=== PATIENT | female | born 1960 | race Caucasian/White ===

== ENCOUNTER → 2018-10-20 10:01 | Outpatient (CLI) | payer OTHER, SELFPAY ==
[2018-10-20 11:23] LABS: EXAGEN MAILED SPECIMEN
[2018-10-20 12:29] LABS: Absolute Lymphocyte Count 1.11 X10^3/ul (0.83-4.51); Absolute Neutrophil Count 1.8 X10^3/uL (2.0-7.7); Basophil# 0.02 X10^3/uL; Basophil% 0.6 % (0-1); Eosinophil# 0.05 X10^3/uL; Eosinophils% 1.5 % (0-5); Hematocrit 45.4 % (37-47); Hemoglobin 14.6 g/dl (12.0-15.0); Lymphocyte # 1.11 X10^3/ul (4.0); Mean Corp Hgb Conc 32.2 g/gl (32-36); Mean Corpuscular Hgb 28.8 pg (27.0-32.0); Mean Corpuscular Volume 89.5 fL (81-99); Monocyte# 0.34 X10^3/uL; Monocyte% 10.1 % (0-10); Neutrophil # 1.83 X10^3/uL (2.7-7.7); Neutrophil % 54.5 % (47-70); Platelet Count 274 K/mm3 (150-450); RBC Distribution Width CV 13.5 % (11.6-14.6); RBC Distribution Width SD 43.7 fl (35.1-43.9); Red Blood Count 5.07 M/mm3 (4.2-5.4); White Blood Count 3.4 K/mm3 (4.4-11.0)
[2018-10-20 12:37] LABS: POSITIVE COUNT NO; POSITIVE DIFFERENTIAL NO; POSITIVE MORPHOLOGY NO
[2018-10-20 12:40] LABS: Color, Urine Yellow (Yellow); Glucose, Dipstick Normal (Normal); Ketone-Dipstick 5 mg/dl (Negative); Leukocyte Esterase-Dipstick 500 /ul (Negative); Nitrite-Dipstick Negative (Negative); Occult Blood-Urine Negative /ul (Negative); Protein-Dipstick Negative (Negative); Specific Gravity, Urine 1.025 (1.002-1.030); Urine Bilirubin Dipstick Negative (Negative); Urine Clarity Sl. Cloudy (Clear); Urine Urobilinogen Normal (Normal)
[2018-10-20 12:49] LABS: Protein, Urine (Random) 25.1 mg/dL (<11.9); Protein:Creat Ratio 110 mg/g CRE (0-200)
[2018-10-20 12:50] LABS: ALB/GLOB Ratio 1.1 RATIO (0.9-2.4); AST(SGOT) 39 U/L (15-37); Alanine Aminotransfer ALT/SGPT 49 U/L (13-56); Alkaline Phosphatase 79 U/L (45-117); Anion Gap 9 (5-15); BUN 11 mg/dL (7-18); BUN/Creat Ratio 14.9 RATIO (10-20); CRP 8.07 mg/L (0.0-3.0); Calcium,Total 8.6 mg/dL (8.5-10.1); Chloride 104 mmol/L (98-107); Creatinine, Serum 0.74 mg/dL (0.55-1.02); EST Glomerular Filtration Rate 86 mL/min (>60); Est Glom Filt Rate - Afr Amer 105 mL/min (>60); Globulin 3.7 g/dL (2.2-4.2); Glucose 84 mg/dL (74-106); Potassium 4.1 mmol/L (3.5-5.1); Protein, Total 7.7 g/dL (6.4-8.2); Sodium Level 141 mmol/L (136-145)
[2018-10-20 17:27] LABS: Erythrocyte Sedimentation Rate 23 mm/hr (0-30)
[2018-10-22 10:02] LABS: HEPATITIS B SURFACE AG Negative (Negative); Hep B Surface Antibodies Reactive (.); Hep C Antibodies 0.2 s/co ratio (0.0-0.9)
== END ==
LOC: MTLAB 10:09
PROVIDERS: Family Provider Family Medicine; PCP Family Medicine; Referring Provider Internal Medicine Rheumatology; Visit Provider Internal Medicine Rheumatology
DX: M06.4 Inflammatory polyarthropathy (principal); R76.8 Other specified abnormal immunological findings in serum; M79.7 Fibromyalgia; G25.81 Restless legs syndrome; I49.9 Cardiac arrhythmia, unspecified
CPT/HCPCS: 36415; 80053; 81002; 82570; 84156; 85025; 85652; 86140; 86706; 86803; 87340

== ENCOUNTER 2019-05-07 10:10 | Day surgery (SDC) | payer OTHER, SELFPAY ==
[2019-05-07] VITALS (7 sets, daily range): BP systolic 122–154; BP diastolic 64–93; PULSE 71–75; RESP 14–16; TEMP 36.1–36.4; O2SAT 97–100; BMI 33.5
--- NOTE | 2019-05-07 11:20 | RAD_ITS ---
STUDY: X-RAY - PELVIS AND LEFT HIP REASON FOR EXAM: Female, 59 years old. Left hip injection. TECHNIQUE: AP views of the pelvis and hip. COMPARISON: None. FINDINGS: Intraoperative imaging provided for left hip injection. Contrast is seen within the left. RAD/Fluoro Guided Needle Placement IMPRESSION: Imaging provided for left hip injection. Electronically Signed: Tuan Fountain, at 15:58 EDT , Service support ,
[2019-05-07] MEDS: MethylPREDNISolone Acetate 80 MG/ML Vial (11:43)
[2019-05-07] MEDS: Bupivacaine 0.25% 30 ML Vial (11:44)
--- NOTE | 2019-05-07 13:04 | OP.PCM_ITS ---
Problem List (1) Primary osteoarthritis of left hip Status: Chronic Report of Operation Date of Procedure: 05/07/19 Description of Surgical Findings:: PREOPERATIVE DIAGNOSIS: Osteoarthritis of left hip POSTOPERATIVE DIAGNOSIS: Osteoarthritis of left hip. PROCEDURE PERFORMED: Left hip intraarticular steroid injection under fluoroscopic guidance. ANESTHESIA: MAC. BLOOD LOSS: Minimal. COMPLICATIONS: None. DESCRIPTION OF PROCEDURE: History and physical of today was reviewed. Risks and benefits of the procedure were explained. The patient understood and agreed to proceed. Informed consent was obtained. IV inserted per routine protocol. The patient was taken to the operating room and placed in the supine position. The left hip area were prepped and draped in a sterile fashion using iodine x3. Under fluoroscopy guidance on an AP view, the left hip joint was visualized visualized. The skin and subcutaneous tissue was anesthetized with approximately 5 mL of 1% lidocaine using a 25-gauge regular needle at approximately 3 cm cephalad to the left greater trochanter, under direct visualization with fluoroscopy on AP view using the lateral approach using a 22- gauge 5 inch spinal needle the needle was advanced via the skin the tip of the needle was maneuver and directed towards the superiormost aspect of the hip joint once the tip of the needle was at the vicinity of the joint after negative aspiration for blood or CSF a total of 1 cc of contrast was injected to confirm correct placement of the needle as well as halo spread around the hip joint a fter repeated confirmation of AP as well as oblique view a total of 10 cc of preservative-free 0.25% Marcaine with 80 mg of Depo-Medrol was injected into the hip joint, . After negative aspiration for blood and positive aspiration of synovial fluid, a The needles were then removed intact. The patient experienced no sign or symptoms of intravascular injection. The patient experienced no paresthesia. The procedure was completed without any apparent difficulty or any complications. The patient appeared to tolerate it well. Assessment and plan: This is a 59-year-old female with osteoarthritis of the left hip status post left hip intra-articular steroid injection under fluoroscopic guidance patient will continue current medications patient found approximately 2 weeks for re evaluation.
== END 2019-05-07 12:40 | disposition home or self-care (01) ==
LOC: SDC 10:15 → AC 10:52
PROVIDERS: Family Provider Family Medicine; PCP Family Medicine; Referring Provider Anesthesiology Pain Medicine; Visit Provider Anesthesiology Pain Medicine
PROC: 3E0U3GC Introduction of Other Therapeutic Substance into Joints, Percutaneous Approach (ICD-10-PCS; CPT 20610; principal; 2019-05-07 11:15)
DX: M16.12 Unilateral primary osteoarthritis, left hip (principal); J45.909 Unspecified asthma, uncomplicated; F41.9 Anxiety disorder, unspecified; F32.9 Major depressive disorder, single episode, unspecified; K21.9 Gastro-esophageal reflux disease without esophagitis; G25.81 Restless legs syndrome; Z86.73 Personal history of transient ischemic attack (TIA), and cerebral infarction without residual deficits; Z79.891 Long term (current) use of opiate analgesic; Z79.899 Other long term (current) drug therapy
CPT/HCPCS: 20610; 76000; 77002; J7120

== ENCOUNTER → 2022-09-10 | Outpatient (CLI) | payer OTHER, SELFPAY ==
--- NOTE | 2022-09-10 11:20 | CT_ITS ---
STUDY: CT ABDOMEN AND PELVIS WITHOUT CONTRAST REASON FOR EXAM: Female, 62 years old. Abdominal pain possible kidney stones. Right flank pain. RADIATION DOSAGE (If Supplied By Facility): CTDIvol = ( 21 ) mGy, DLP = ( 944.22 ) mGycm TECHNIQUE: Transaxial images were obtained from the dome of the diaphragm to the symphysis pubis without oral contrast, and without intravenous contrast. Sagittal and coronal images were reconstructed. Individualized dose optimization techniques were used for this CT. COMPARISON: None. FINDINGS: Minimal linear scarring at the left lung base. The visualized portions of the heart are within normal limits. Normal liver. Questionable tiny layering gallstones. Normal spleen. Normal pancreas. There is a small, circumscribed, smooth, low attenuation left adrenal mass, consistent with an adrenal adenoma. This measures 1.7 cm Normal right adrenal gland. Normal right kidney. Normal left kidney. There is a retroaortic left renal vein. There is a small hiatal hernia. Normal small intestine. There are scattered colonic diverticula consistent with diverticulosis. There is non-visualization of the appendix. There is scattered atherosclerotic calcification of the abdominal aorta, without a demonstrated aneurysm. Normal inferior vena cava. Normal retroperitoneum. Normal urinary bladder. There is absence of the uterus consistent with a prior hysterectomy. There is a small umbilical hernia containing fat. Small right inguinal hernia containing fat. There are degenerative changes of the visualized lumbar spine. The patient is status post left total hip replacement. CT/Abdomen/Pelvis without Cont IMPRESSION: Questionable tiny layering gallstones. Small left adrenal adenoma. Scattered sigmoid diverticula. Electronically Signed: Tuan Fountain MD at 12:20 EST ,
== END | disposition home or self-care (01) ==
LOC: CT 11:19
PROVIDERS: PCP Family Medicine; Visit Provider Surgery
DX: R10.9 Unspecified abdominal pain (principal)
CPT/HCPCS: 74176

== ENCOUNTER 2022-09-13 06:01 | Day surgery (SDC) | payer OTHER, SELFPAY ==
[2022-09-13] VITALS (8 sets, daily range): BP systolic 128–152; BP diastolic 52–89; PULSE 60–100; RESP 16–18; TEMP 36.7–37.2; O2SAT 90–100; BMI 35.4
--- NOTE | 2022-09-13 06:28 | EKG12_ITS ---
Test Reason : PRE-OP Blood Pressure : / mmHG Vent. Rate : 078 BPM Atrial Rate : 078 BPM P-R Int : 164 ms QRS Dur : 086 ms QT Int : 370 ms P-R-T Axes : 038 -05 036 degrees QTc Int : 421 ms Normal sinus rhythm Normal ECG Confirmed by ROBBIE PRABHAKAR, YANETH ([id number]), production editor SPENCER MCCLOUD ([id number]) on 09/16/2022 11:40:23 AM Referred By: Colt Hanna Confirmed By:YANETH AVALOS MD
--- NOTE | 2022-09-13 06:30 | RAD_ITS ---
STUDY: INTRAOPERATIVE CHOLANGIOGRAM. REASON FOR EXAM: Female, 62 years old. Laparoscopic cholecystectomy. FLUOROSCOPY TIME (if supplied): ( 11.8 seconds ) minutes/seconds. A cine loop of 70 images was submitted. TECHNIQUE: An intraoperative cholangiogram was performed by the surgeon. Imaging was provided. COMPARISON: None. FINDINGS: The visualized intrahepatic biliary ducts are unremarkable. The common bile duct as well as the pancreatic duct are unremarkable as well. Free flow of contrast is seen into the duodenum. RAD/Cholangiogram/ O R,Initial IMPRESSION: Unremarkable intraoperative cholangiogram. Electronically Signed: Tuan Fountain MD at 10:08 [facility] ,
[2022-09-13 06:37] LABS: Hematocrit 42.1 % (37-47); Hemoglobin 13.9 g/dL (12.0-15.0); Mean Corpuscular Hgb 28.9 pg (27.0-32.0); Mean Corpuscular Volume 87.5 fL (81-99); Mean Platelet Vol. 9.8 fl (6.2-12.0); Platelet Count 354 K/mm3 (150-450); RBC Distribution Width SD 41.6 fl (35.1-43.9); Red Blood Count 4.81 M/mm3 (4.2-5.4); White Blood Count 8.4 K/mm3 (4.4-11.0)
[2022-09-13] MEDS: Lactated Ringers 1,000 ML 15 ML IV ×2 (06:43→09:01)
[2022-09-13 06:46] LABS: Partial Thromboplast Time 27.8 Seconds (24.1-36.2); Prothrombin Time (Protime)PT. 12.6 SECONDS (11.7-14.9)
[2022-09-13 07:05] LABS: AST(SGOT) 20 U/L (15-37); Alanine Aminotransfer ALT/SGPT 31 U/L (13-56); Albumin, Serum 3.6 g/dL (3.2-5.0); Alkaline Phosphatase 92 U/L (45-117); Bilirubin, Direct 0.15 mg/dL (0.00-0.30); Globulin 3.7 g/dL (2.2-4.2); Protein, Total 7.3 g/dL (6.4-8.2)
--- NOTE | 2022-09-13 07:14 | HP.PCM_ITS ---
History and Physical Date of Admission: 09/13/22 Intake Vital Signs ? 09/09/2312:16 Height 5 ft 4 in Weight: 210 lb 2 oz BMI 36.1 BP 120/82 H Blood Pressure Location Rt brachial Position Sitting Respiration 18 Pulse 84 Pulse Source Monitor Temp 97.4 F L Temp Source Temporal Pulse Oximetry (%) 96 Oxygen Delivery Method room air Intake Visit Reasons:?GALLBLADDER Chief Complaint: Gallstones Rail Track Layer Required: No Is patient in pain?: Yes Allergies tramadol Allergy (Intermediate, Verified 09/09/22 13:18) mood changes Medications ropinirole 2 mg tablet 2 mg PO DAILY 05/01/19 [History Confirmed 09/09/22] duloxetine 60 mg capsule,delayed release 90 mg PO DAILY 09/09/22 [History Confirmed 09/09/22] fluoxetine 20 mg capsule 20 mg PO DAILY 09/09/22 [History Confirmed 09/09/22] PFSH Medical History?(Updated 09/09/22 @ 14:[address] Félix Wilkerson MD) Abdominal pain Gallstones Primary osteoarthritis of left hip RUQ pain Surgical History?(Updated 09/09/22 @ 13:12 by Taylor Torres) History of hysterectomy History of lymph node biopsy History of vocal cord polypectomy Family History?(Updated 09/09/22 @ 13:15 by Taylor Torres) Mother Breast cancerSister Breast cancer Seizures Thyroid disorderSister Breast cancer Seizures Thyroid disorderAunt Breast cancer DiabetesUncle DiabetesFather Heart diseaseBrother Skin cancer Seizures CVA (cerebral vascular accident)Brother Seizures Social History?(Updated 09/09/22 @ 13:16 by Taylor Torres) Smoking Status:? Never smoker alcohol intake:? never substance use type:? does not use HPI HPI HPI: Patient is a 62-year-old female here for abdominal pain.? She says most of the pain is actually in her right back.? She does says she has some nausea but no vomiting.? She denies fevers or chills.? She says has been going on for a few months.? She said eating does make it worse. ROS General General: Yes weight change and fatigue; No appetite, colon cancer, breast cancer or weakness HEENT HEENT: Yes difficulty swallowing; No eye injury, eye surgery, swollen glands or hoarseness Endo Endocrine: No thyroid disease, diabetes mellitus, thyroid cancer, Hair loss, heat intolerance or cold intolerance Skin Skin: Yes rash; No changing moles Breast Breast: No left breast lump, right breast lump, nipple discharge, breast pain, abnormal mammogram, abnormal US or breast enlargement Musc Musculoskeletal: Yes back problems and arthritis; No rheumatoid arthritis, gout or joint pain Cardio Cardiovascular: Yes high blood pressure; No murmur, pacemaker, heart disease, atrial fibrillation, heart attack, heart stent, palpitations, shortness of breat with exertion or chest pain Psych Psychiatric: Yes depression and anxiety; No hearing voices Resp Respiratory: No shortness of breath, Yes sleep apnea, No cough, No COPD, No asthma, No emphysema and No wheezing Gastro Gastrointestinal: Yes abdominal pain, Yes nausea or vomiting, No diarrhea, No constipation, No blood in stool, Yes acid reflux, No hemorrhoids, No ulcers, Yes gallbladder problem and No black,tarry stools Art Hematologic: No blood thinners, No blood disorders, No bleeding, No anemia and No blood clots Neuro Neurologic: No system reviewed and no additional complaints, except as documented, No as per HPI, No abnormal gait, No abnormal hearing, No abnormal movements, No abnormal speech, No behavioral changes, No burning sensations, No confusion, No convulsions, No disequilibrium, No dizziness, No localized weakness, No frequent falls, No headache(s), No lack of coordination, No loss of vision, No memory loss, Yes numbness, No other visual disturbances, No radicular pain, No restless legs, No sensory deficit, No syncope, Yes tingling, No tremor(s), No weakness and No other Exam Const General: cooperative Orientation: alert and oriented x3 HENVA Head: normal to inspection Neck Neck: normal visual inspection and full ROM Chest Chest palpation & inspection: normal inspection of the chest Resp Effort & Inspection: normal respiratory effort Auscultation: clear to auscultation bilaterally Cardio Rate: regular rate Rhythm: regular rhythm GI Inspection: non-distended Palpation: soft and nontender General: CVA tenderness on the right Skin General: no rashes or lesions noted Neuro General: patient alert and patient oriented x3 Extrem General: full ROM Psych Appearance: grossly normal Mental Status: mental status grossly normal Assessment and Plan Assessment and Plan (1) Cholelithiasis: ?Status:?Acute ?Qualifiers: ?Cholelithiasis location:?gallbladder??Cholecystitis presence:?without cholecystitis??Biliary obstruction:?without biliary obstruction? Qualified Code(s):?K80.20 - Calculus of gallbladder without cholecystitis without obstruction ?Plan: Patient was sent here from an outside hospital due to cholelithiasis.? Upon examining her the patient does not have any right upper quadrant pain and most of her pain is in her right CVA area.? Patient does not note any blood in her urine and has never had kidney stones.? Ultrasound revealed that she does have gallstones but no thickening.? Patient says that she is constantly in pain is been in pain and months but has been getting worse. I reviewed the patient's ultrasound with her and I do believe that she would need laparoscopic cholecystectomy as long as the CT scan does not show kidney stones.? It is odd that her pain is more in the right CVA than the right upper quadrant.? After CT is able to be done to confirm that there are no kidney stones as the cause of her pain then I would recommend laparoscopic cholecystectomy. I discussed the procedure in detail with the patient.? I discussed the risks, benefits, and alternatives of the procedure.? I discussed the risks including but not limited to bleeding, infection, injury to surrounding organs such as the liver, bile duct, bowels.? I did discuss the possibility of having to convert to an open procedure as well as the possibility that if any injuries occurred this may necessitate further surgery at a tertiary care center. Félix Wilkerson MD Pager: [facility] [address] [place] [address], [address] [place] [address] Office: I obtained CT scan and it did not show any kidney stones leaving the gallbladder is the most likely cause of her pain. I discussed cholecystectomy with her and she would like to proceed. I discussed the procedure in detail with the patient. I discussed the risks, benefits, and alternatives of the procedure. I discussed the risks including but not limited to bleeding, infection, injury to surrounding organs such as the liver, bile duct, bowels. I did discuss the possibility of having to convert to an open procedure as well as the possibility that if any injuries occurred this may necessitate further surgery at a tertiary care center. I have examined the patient and the H&P has been reviewed. There are no clinical changes since date of exam. Félix Wilkerson MD Pager: [facility] [address] [place] [address], [address] [place] [address] Office:
--- NOTE | 2022-09-13 07:30 | GALL_PTH ---
PATIENT: BOOM PATE LOC: [facility] [place] U#:[id number] AGE/SX: 62/F ROOM: RE09/13/[address]: Dr. Félix Wilkerson MD : 1960 BED: DIS: 09/13/2022 SPEC #: [id number] RECD: 09/13/22 10:56 STATUS: GEORGE REKeyla #: [id number] SHELBY: 09/13/22 07:[address]: Félix Wilkerson DEPT: SURGICAL PATHOLOGY RECD BY: Jayleen Cano ENTERED: 09/13/22 12:01 SP TYPE: CELIO OLIVARES DR: Dr. Colt Hanna MD Tissues: Gallbladder, NOS Procedures: Surgery Specimen Level III HEADER OPERATION: Laparoscopic cholecystectomy with IOC PRE-OP DIAGNOSIS: Cholelithiasis TISSUE SUBMITTED: Gallbladder MICROSCOPIC DIAGNOSIS Gallbladder, cholecystectomy: Chronic cholecystitis and cholelithiasis. SJ:lisa 09/14/2022 MICROSCOPIC DESCRIPTION Slides are reviewed. GROSS DESCRIPTION Received is one container labeled with the patient's name and designated gallbladder. The specimen consists of a gallbladder measuring 11 cm in length and 3.5 cm in diameter. The external surface is pink-reyes, smooth and glistening for the most part. Focally it is granular, hemorrhagic and contains cautery artifact. The gallbladder contains green-yellow mucoid bile and two multifaceted, yellowish-orange stones measuring 1.5 and 2 cm in greatest dimension. The mucosa is bile-stained and without any mass lesions. The gallbladder wall measures up to 0.2 cm in thickness. Awning Spreader sections from the gallbladder and the cystic duct are submitted in one cassette. / SJ:rg 09/13/2022 TC:3 CPT: 08383
[2022-09-13] MEDS: Cefotetan 2 GM in 0.9% NS 100 ML IV (07:41)
[2022-09-13] MEDS: Bupiv/Epi 0.5% Mpf 30 ML Vial (07:48)
--- NOTE | 2022-09-13 08:55 | PCM.OPRPT ---
Report of Operation Date of Procedure: 09/13/22 Pre-Operative Diagnosis: Cholelithiasis Post-Operative Diagnosis: Same Surgery/Procedure Performed:: Laparoscopic cholecystectomy with cholangiogram Specimen's removed: Gallbladder Description of Procedure: After obtaining informed consent patient was brought back to the operating room. General anesthesia was induced. The abdomen was prepped and draped in usual sterile fashion. A small midline incision was made superior to the umbilicus and deepened to the level of fascia. The fascia was elevated and incised. Next the peritoneum was elevated and incised in the same fashion. Finger sweep was performed and the Cheng trocar was placed into the abdomen. The balloon was inflated. The abdomen was inflated to 15 mmHg. Next a camera was introduced into the abdomen and the abdomen was inspected. Next under direct visualization three 5-mm ports were placed one subxiphoid and 2 subcostal. Next the gallbladder was elevated and retracted toward the right shoulder. The peritoneum was stripped from the gallbladder. The infundibulum was located and retracted laterally. Next the triangle of Calot was dissected and the cystic duct and cystic artery were identified. Cholangiograms were performed. The Laird clamp was used to clamp across the infundibulum and the catheter needle was inserted into the gallbladder. Under fluoroscopy contrast was instilled into the gallbladder and the common duct, cystic duct as well as proximal hepatic ducts were identified. There was good filling of the duodenum. There were no filling defects noted in the common bile duct. The clamp was removed as well as the needle and the infundibulum was grasped once more. Three hemolock clips were placed across the cystic duct. The cystic duct was then divided leaving 2 clips on the stump. The cystic artery was clipped and divided in the same fashion. The hook cautery was then used to take the gallbladder off of the gallbladder bed. Hemostasis was obtained. Gallbladder fossa was irrigated and no active bleeding or bile leakage was noted. Next the camera was introduced in the subxiphoid port. An Endopouch bag was placed through the umbilical port and the gallbladder was placed into it. The gallbladder was then removed through the umbilical incision. The camera was then reinserted through the umbilical port. The gallbladder fossa was inspected once more and noted to be hemostatic with no leaking bile. The abdomen was suctioned dry. The 5 mm ports were removed under direct visualization. The umbilical port was then removed and the air was removed from the abdomen. Next using an 0 Vicryl suture the umbilical fascia was closed in a [id number] fashion. The umbilical port site was irrigated local anesthetic was administered to all the incisions. All the incisions were closed with interrupted subcuticular 4-0 Monocryl sutures followed by Steri-Strips and dressings. The patient was awoken and taken to PACU in stable condition. Admit VTE Documentation VTE Mechan Device Prophylaxis: SCD's
--- NOTE | 2022-09-13 08:57 | DCINST_ITS ---
Discharge Instructions Procedure Gallbladder Diet Discharge Diet: Light diet - advance as tolerated Activity Discharge Activity: May Not Drive (for 2-3 days or while taking narcotic pain medications.) and - (Do not drive, work heavy equipment or sign legal documents for 24 hours.) May shower in (days): 1 Lifting Restrictions: 20 lbs for 2 weeks Additional Activity Instructions:: Pain medication may cause nausea. You should typically eat light foods as you take your pain medications. Pain medication may also cause constipation. If this is a problem for you, please discuss with your doctor. Dressing / Incision Call your doctor if your incision/area has: Continuous Slow Oozing, Sudden Increased Bleeding, Increased Pain/ Swelling, Increased Redness and Foul Smelling Discharge Call your doctor if you observe: Fever of 101 or Higher Suture Line Care: Avoid Pulling/Pushing and Avoid Pinching/Bending Remove Dressing in: 2 days Additional Dressing/Incision Instructions:: Leave operative bandaids on for 2 days. When you remove dressing, leave Steri-Strips on until your follow-up appointment, or until the Steri-Strips fall off on their own. Follow Up Care Please Follow Up With: Félix Wilkerson MD When: Please call to schedule 2 week follow up appointment. [phone] Test Results: Test results from this visit will be discussed in further detail at your follow- up appointment, if applicable. Discharge Plan Admission Attending Provider: Félix Wilkerson Primary Care Provider: Colt Hanna Discharge Orders/Prescriptions Prescriptions: New oxycodone 5 mg tablet 5 - 10 mg PO Q6H PRN (Reason: pain) 5 Days Qty: 20 0RF No Action fluoxetine 20 mg capsule 20 mg PO DAILY ropinirole 2 MG tablet 2 mg PO QHS Referrals / Follow Up: Colt Hanna MD [Primary Care Provider] - Disposition Disposition (needs filled in before D/C Order can be placed): Home, Self Care
[2022-09-13] MEDS: Scopolamine 1mg/72hr Patch 1 PATCH TD (11:15)
== END 2022-09-13 11:23 | disposition home or self-care (01) ==
LOC: SDC 06:02 → AC 06:03
PROVIDERS: Anesthesiology; PCP Family Medicine; Referring Provider Family Medicine; Visit Provider Surgery
PROC: (CPT 47610; principal; 2022-09-13 07:10)
DX: K80.10 Calculus of gallbladder with chronic cholecystitis without obstruction (principal); F41.9 Anxiety disorder, unspecified; F32.A Depression, unspecified; Z79.899 Other long term (current) drug therapy; I10 Essential (primary) hypertension; Z78.0 Asymptomatic menopausal state; Z86.73 Personal history of transient ischemic attack (TIA), and cerebral infarction without residual deficits
CPT/HCPCS: 47563; 00790; 74300; 76000; 80076; 85027; 85610; 85730; 88304; 93005; J7120; J2405

== ENCOUNTER 2025-06-10 08:32 | Day surgery (SDC) | payer MEDICAID, SELFPAY ==
--- NOTE | 2025-06-03 14:15 | PAT.ANESEVAL ---
Pre-Assessment Diagnosis/Proposed Procedure Planned Operative Procedure(s): Microlaryngoscopy Anesthesia History Anesthesia History - registered medical transcriptionist: Anesthesia History - registered medical transcriptionist Hx Hospitalization No 06/03/25 13:20 Any Problems With Anesthesia Yes: DIFFICULT WAKING 06/03/25 13:20 Cholinesterase deficiency No 06/03/25 13:20 You/Your Family Experience No 06/03/25 13:20 fever (hyperthermia) with Relationship Recent Exposure to Contagious No 09/13/22 06:22 Disease Does patient have nerve No 06/03/25 13:20 stimulator Patient instructed to have device shut off --Does patient have Pacemaker or ICD? When Was Last Pacemaker Check QUESTION #4 FULL TEXT: You/Your Family Experience fever (hyperthermia) with Anesthesia Last Oral Intake Last Oral intake: Last Oral Intake NPO since Meds taken in AM with sips of water? Meds patient instructed to take am of surgery PONV PONV - registered medical transcriptionist: PONV - registered medical transcriptionist Female Yes 06/03/25 13:20 HX of Motion Sickness No 06/03/25 13:20 HX of N/V After Surgery No 06/03/25 13:20 Non-Smoker Yes 06/03/25 13:20 Duration of Surgery greater No 06/03/25 13:20 than 60 minutes Number of Risk Factors 2 06/03/25 13:20 PONV Score Moderate Risk 06/03/25 13:20 Height & Weight Height & Weight: Anesthesia: Height & Weight Height 5 ft 4 in 09/13/22 06:22 Respiratory Assessment Respiratory Assessment - registered medical transcriptionist: Respiratory Tract Infection Hx - registered medical transcriptionist Hx Respiratory Tract Infection No 06/03/25 13:20 STOP Sleep Apnea STOP Sleep Apnea - registered medical transcriptionist: STOP Sleep Apnea - registered medical transcriptionist Hx Hypertension No 06/03/25 13:20 Hx Sleep Apnea Yes 06/03/25 13:20 CPAP Yes: CURRENTLY NOT USING 06/03/25 13:20 BIPAP No 06/03/25 13:20 Do you snore loudly (louder than talking or can be heard Do you often feel tired/ fatigued/ sleepy during daytime? Has anyone observed you stop breathing during sleep? STOP Results Positive 06/03/25 13:20 QUESTION #5 FULL TEXT : Do you snore loudly (louder than talking or can be heard through closed doors)? 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 Specify any problems Hx of Preganancy in last 3 No 06/03/25 13:20 Months Nurse Filling Out Transfusion MGRIFFITH 06/03/25 13:20 & Questions: Date: 06/03/25 06/03/25 13:20 Time: 13:22 06/03/25 13:20 Patient unable to answer at this time (ie. confused, unrespo /Reproduction History /Reproductive History - registered medical transcriptionist: /Reproductive Hx- registered medical transcriptionist Hx Now No 06/03/25 13:20 Gestational Age (in weeks): EDC: Hx Hx Para Hx Section SAB No 06/03/25 13:20 [facility] Medical History (Updated 06/03/25 @ 13:32 by Mary Orellana) High cholesterol Stroke/cerebrovascular accident Restless legs Leg cramps Cardiology follow-up encounter Wears dentures Wears glasses Post-menopausal Depression Anxiety Lichen sclerosus of female genitalia History of steroid therapy Arthritis Excessive bleeding Back pain TIA (transient ischemic attack) Syncope Gastric reflux Non-smoker CPAP (continuous positive airway pressure) dependence Sleep apnea Asthma Shortness of breath on exertion History of edema History of echocardiogram History of stress test Hypertension History of irregular heartbeat History of epidural anesthesia Gallstones Primary osteoarthritis of left hip Home Medications Medication Instructions Recorded Last Taken Type duloxetine 60 mg capsule,delayed 60 mg PO QHS 06/03/25 Unknown History release ropinirole 4 mg tablet 4 mg PO QHS restless legs 06/03/25 Unknown History Allergy/AdvReac Type Severity Reaction Status Date / Time tramadol Allergy Intermediate mood Verified 06/03/25 13:16 changes Family History (Updated 09/09/22 @ 13:15 by Taylor Torres) Mother Breast cancer Sister Breast cancer Seizures Thyroid disorder Sister Breast cancer Seizures Thyroid disorder Aunt Breast cancer Diabetes Uncle Diabetes Father Heart disease Brother Skin cancer Seizures CVA (cerebral vascular accident) Brother Seizures Surgical History (Updated 06/03/25 @ 13:19 by Mary Orellnaa) History of colonoscopy History of cholecystectomy (~08/2022) History of cardiac catheterization Hx of total hip arthroplasty History of lymph node biopsy History of hysterectomy History of vocal cord polypectomy Social History (Updated 09/09/22 @ 13:16 by Taylor Torres) Smoking Status: Never smoker alcohol intake: never substance use type: does not use Audit: Pertinent Findings Pertinent Findings EKG Perinent findings: 09/13/2022. Normal sinus rhythm 78 bpm. Normal EKG Recommendation Anesthesia Recommendation Anesthesia recommendation: OPTIMIZED for anesthesia
--- NOTE | 2025-06-04 07:16 | EKG12_ITS ---
Test Reason : PREOP Blood Pressure : */* mmHG Vent. Rate : 80 BPM Atrial Rate : 80 BPM P-R Int : 146 ms QRS Dur : 98 ms QT Int : 362 ms P-R-T Axes : 44 0 55 degrees QTcB Int : 417 ms Normal sinus rhythm Incomplete right bundle branch block Borderline ECG Confirmed by NANY PRABHAKAR, DESTINY ([id number]), technical writer and editor SPENCER MCCLOUD ([id number]) on 06/05/2025 7:13:04 AM Referred By: Isaiah Vital Confirmed By: DESTINY AYON MD
[2025-06-04 08:26] LABS: Hematocrit 44.7 % (37-47); Hemoglobin 14.9 g/dL (12.0-15.0); Mean Corp Hgb Conc 33.3 g/dL (32-36); Mean Corpuscular Volume 87.6 fL (81-99); Mean Platelet Vol. 10.8 fl (6.2-12.0); Platelet Count 328 K/mm3 (150-450); RBC Distribution Width CV 13.7 % (11.6-14.6); RBC Distribution Width SD 44.1 fl (35.1-43.9); Red Blood Count 5.10 M/mm3 (4.2-5.4); White Blood Count 8.5 K/mm3 (4.4-11.0)
[2025-06-04 09:04] LABS: Anion Gap 10 (5-15); BUN 16 mg/dL (4-19); BUN/Creat Ratio 20.2 RATIO (10-20); Calcium,Total 9.3 mg/dL (7.6-11.0); Carbon Dioxide 27.2 mmol/L (21.0-32.0); Chloride 106 mmol/L (98-108); Glucose 103 mg/dL (70-99); Potassium 4.4 mmol/L (3.3-5.1)
--- NOTE | 2025-06-06 15:50 | PAT.ANESEVAL ---
Pre-Assessment Diagnosis/Proposed Procedure Planned Operative Procedure(s): Microlaryngoscopy Anesthesia History Anesthesia History - university counselor: Anesthesia History - university counselor Hx Hospitalization No 06/03/25 13:20 Any Problems With Anesthesia Yes: DIFFICULT WAKING 06/03/25 13:20 Cholinesterase deficiency No 06/03/25 13:20 You/Your Family Experience No 06/03/25 13:20 fever (hyperthermia) with Relationship Recent Exposure to Contagious No 09/13/22 06:22 Disease Does patient have nerve No 06/03/25 13:20 stimulator Patient instructed to have device shut off --Does patient have Pacemaker or ICD? When Was Last Pacemaker Check QUESTION #4 FULL TEXT: You/Your Family Experience fever (hyperthermia) with Anesthesia Last Oral Intake Last Oral intake: Last Oral Intake NPO since Meds taken in AM with sips of water? Meds patient instructed to take am of surgery PONV PONV - university counselor: PONV - university counselor Female Yes 06/03/25 13:20 HX of Motion Sickness No 06/03/25 13:20 HX of N/V After Surgery No 06/03/25 13:20 Non-Smoker Yes 06/03/25 13:20 Duration of Surgery greater No 06/03/25 13:20 than 60 minutes Number of Risk Factors 2 06/03/25 13:20 PONV Score Moderate Risk 06/03/25 13:20 Height & Weight Height & Weight: Anesthesia: Height & Weight Height 5 ft 4 in 09/13/22 06:22 Respiratory Assessment Respiratory Assessment - university counselor: Respiratory Tract Infection Hx - university counselor Hx Respiratory Tract Infection No 06/03/25 13:20 STOP Sleep Apnea STOP Sleep Apnea - university counselor: STOP Sleep Apnea - university counselor Hx Hypertension No 06/03/25 13:20 Hx Sleep Apnea Yes 06/03/25 13:20 CPAP Yes: CURRENTLY NOT USING 06/03/25 13:20 BIPAP No 06/03/25 13:20 Do you snore loudly (louder than talking or can be heard Do you often feel tired/ fatigued/ sleepy during daytime? Has anyone observed you stop breathing during sleep? STOP Results Positive 06/03/25 13:20 QUESTION #5 FULL TEXT : Do you snore loudly (louder than talking or can be heard through closed doors)? 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 Specify any problems Hx of Preganancy in last 3 No 06/03/25 13:20 Months Nurse Filling Out Transfusion MGRIFFITH 06/03/25 13:20 & Questions: Date: 06/03/25 06/03/25 13:20 Time: 13:22 06/03/25 13:20 Patient unable to answer at this time (ie. confused, unrespo /Reproduction History /Reproductive History - university counselor: /Reproductive Hx- university counselor Hx Now No 06/03/25 13:20 Gestational Age (in weeks): EDC: Hx Hx Para Hx Section SAB No 06/03/25 13:20 [facility] Medical History (Updated 06/03/25 @ 13:32 by Mary Orellana) High cholesterol Stroke/cerebrovascular accident Restless legs Leg cramps Cardiology follow-up encounter Wears dentures Wears glasses Post-menopausal Depression Anxiety Lichen sclerosus of female genitalia History of steroid therapy Arthritis Excessive bleeding Back pain TIA (transient ischemic attack) Syncope Gastric reflux Non-smoker CPAP (continuous positive airway pressure) dependence Sleep apnea Asthma Shortness of breath on exertion History of edema History of echocardiogram History of stress test Hypertension History of irregular heartbeat History of epidural anesthesia Gallstones Primary osteoarthritis of left hip Home Medications Medication Instructions Recorded Last Taken Type duloxetine 60 mg capsule,delayed 60 mg PO QHS 06/03/25 Unknown History release ropinirole 4 mg tablet 4 mg PO QHS restless legs 06/03/25 Unknown History Allergy/AdvReac Type Severity Reaction Status Date / Time tramadol Allergy Intermediate mood Verified 06/03/25 13:16 changes Family History (Updated 09/09/22 @ 13:15 by Taylor Torres) Mother Breast cancer Sister Breast cancer Seizures Thyroid disorder Sister Breast cancer Seizures Thyroid disorder Aunt Breast cancer Diabetes Uncle Diabetes Father Heart disease Brother Skin cancer Seizures CVA (cerebral vascular accident) Brother Seizures Surgical History (Updated 06/03/25 @ 13:19 by Mary Orellana) History of colonoscopy History of cholecystectomy (~08/2022) History of cardiac catheterization Hx of total hip arthroplasty History of lymph node biopsy History of hysterectomy History of vocal cord polypectomy Social History (Updated 09/09/22 @ 13:16 by Taylor Torres) Smoking Status: Never smoker alcohol intake: never substance use type: does not use Audit: Pertinent Findings HISTORY of Pertinent Findings History of Pertinent Findings: EKG Pertinent Findings EKG Perinent findings 09/13/2022. Normal sinus 06/03/25 14:16 rhythm 78 bpm. Normal EKG Pertinent Findings EKG Perinent findings: EKG June 04, 2025. Normal sinus rhythm. Incomplete right bundle branch block. Recommendation Anesthesia Recommendation Anesthesia recommendation: OPTIMIZED for anesthesia
[2025-06-10] VITALS (8 sets, daily range): BP systolic 125–162; BP diastolic 72–90; PULSE 67–83; RESP 16–18; TEMP 36.1–36.5; O2SAT 86–98; BMI 37.8
--- NOTE | 2025-06-10 08:48 | PRE.ANES_ITS ---
ASA Classification* ASA Classification ASA Classification: 2 Assessment & Plan Anesthesia* Anesthesia Assessment Anesthesia Assessment: Discussed sedation and/or anesthesia options, risks, benefits, and alternatives with patient/parents/legal guardian/POA. Questions invited. The patient/parents/legal guardian/POA seems to understand and agrees to proceed with anesthesia plan. Reviewed the physical assessment, medical history, allergy history and patient home medications list prior to surgery/procedure/anesthetic and documented any changes. Performed airway and anesthesia risk assessments. Anesthesia Type Anesthesia Type: General Anesthesia Focused Assessment* Airway Assessment Mouth opens: >3 cm Mallampati Score: II Labs Anesthesia Preop lab: CBC WBC, (4.4-11.0) 8.5 K/mm3 06/04/25, : RBC, (4.2-5.4) 5.10 M/mm3 06/04/25, : Hgb, (12.0-15.0) 14.9 g/dL 06/04/25, : Hct, (37-47) 44.7 % 06/04/25, : Plt Count, (150-450) 328 K/mm3 06/04/25, 07:29 CHEMISTRY Potassium, (3.3-5.1) 4.4 mmol/L 06/04/25, : Sodium, (133-145) 143 mmol/L 06/04/25, : BUN, (4-19) 16 mg/dL 06/04/25, : Creatinine, (0.70-1.20) 0.77 mg/dL 06/04/25, : Glucose, (70-99) 103 mg/dL H 06/04/25, 07:29 COAG PT, (11.7-14.9) 12.6 SECONDS 09/13/22, 06:30 Pre-Assessment Diagnosis/Proposed Procedure Planned Operative Procedure(s): Microlaryngoscopy Anesthesia History Anesthesia History - industrial 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 When Was Last Pacemaker Check QUESTION #4 FULL TEXT: You/Your Family Experience fever (hyperthermia) with Anesthesia Last Oral Intake Last Oral intake: Last Oral Intake NPO since Meds taken in AM with sips of water? Meds patient instructed to take am of surgery PONV PONV - industrial maintenance repairer helper: PONV - industrial maintenance repairer helper Female Yes 06/03/25 13:20 HX of Motion Sickness No 06/03/25 13:20 HX of N/V After Surgery No 06/03/25 13:20 Non-Smoker Yes 06/03/25 13:20 Duration of Surgery greater No 06/03/25 13:20 than 60 minutes Number of Risk Factors 2 06/03/25 13:20 PONV Score Moderate Risk 06/03/25 13:20 Height & Weight Height & Weight: Anesthesia: Height & Weight Height 5 ft 4 in 09/13/22 06:22 Respiratory Assessment Respiratory Assessment - industrial maintenance repairer helper: Respiratory Tract Infection Hx - industrial maintenance repairer helper Hx Respiratory Tract Infection No 06/03/25 13:20 STOP Sleep Apnea STOP Sleep Apnea - industrial maintenance repairer helper: STOP Sleep Apnea - industrial maintenance repairer helper Hx Hypertension No 06/03/25 13:20 Hx Sleep Apnea Yes 06/03/25 13:20 CPAP Yes: CURRENTLY NOT USING 06/03/25 13:20 BIPAP No 06/03/25 13:20 Do you snore loudly (louder than talking or can be heard Do you often feel tired/ fatigued/ sleepy during daytime? Has anyone observed you stop breathing during sleep? STOP Results Positive 06/03/25 13:20 QUESTION #5 FULL TEXT : Do you snore loudly (louder than talking or can be heard through closed doors)? 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 Specify any problems Hx of Preganancy in last 3 No 06/03/25 13:20 Months Nurse Filling Out Transfusion MGRIFFITH 06/03/25 13:20 & Questions: Date: 06/03/25 06/03/25 13:20 Time: 06/03/25 13:20 Patient unable to answer at this time (ie. confused, unrespo /Reproduction History /Reproductive History - industrial maintenance repairer helper: /Reproductive Hx- industrial maintenance repairer helper Hx Now No 06/03/25 13:20 Gestational Age (in weeks): EDC: Hx Hx Para Hx Section SAB No 06/03/25 13:20 Active Medications Active Medications: Current Medications Generic Name Dose Route Start Last Admin Trade Name Freq PRN Reason Stop Dose Admin Lactated Ringer's 1,000 mls @ 15 mls/hr 06/10/25 08:45 IV .Q48H MONTRELL PFSH Medical History High cholesterol Stroke/cerebrovascular accident Restless legs Leg cramps Cardiology follow-up encounter Wears dentures Wears glasses Post-menopausal Depression Anxiety Lichen sclerosus of female genitalia History of steroid therapy Arthritis Excessive bleeding Back pain TIA (transient ischemic attack) Syncope Gastric reflux Non-smoker CPAP (continuous positive airway pressure) dependence Sleep apnea Asthma Shortness of breath on exertion History of edema History of echocardiogram History of stress test Hypertension History of irregular heartbeat History of epidural anesthesia Gallstones Primary osteoarthritis of left hip Home Medications Medication Instructions Recorded Last Taken Type duloxetine 60 mg capsule,delayed 60 mg PO QHS 06/03/25 Unknown History release ropinirole 4 mg tablet 4 mg PO QHS restless legs Unknown History Allergy/AdvReac Type Severity Reaction Status Date / Time tramadol Allergy Intermediate mood Verified 06/10/25 08:48 changes Family History Mother Breast cancer Sister Breast cancer Seizures Thyroid disorder Sister Breast cancer Seizures Thyroid disorder Aunt Breast cancer Diabetes Uncle Diabetes Father Heart disease Brother Skin cancer Seizures CVA (cerebral vascular accident) Brother Seizures Surgical History History of colonoscopy History of cholecystectomy (~08/2022) History of cardiac catheterization Hx of total hip arthroplasty History of lymph node biopsy History of hysterectomy History of vocal cord polypectomy Social History Smoking Status: Never smoker alcohol intake: never substance use type: does not use Review of Systems (Anesthesia) ROS Narrative System reviewed and no additional complaints, except as documented.
[2025-06-10] MEDS: Lactated Ringers 1,000 ML 15 ML IV (09:07)
--- NOTE | 2025-06-10 10:15 | VOCOB_PTH ---
PATIENT: BOOM PATE LOC: [facility] [place][id number] AGE/SX: 65/F ROOM: RE06/10/[address]: Dr. Isaiah Vital MD : 1960 BED: DIS: 06/10/2025 SPEC #: [id number] RECD: 06/10/25 13:40 STATUS: GEORGE REKeyla #: [id number] SHELBY: 06/10/25 10:[address]: Isaiah Vital DEPT: SURGICAL PATHOLOGY RECD BY: Stalin Alvarez ENTERED: 06/10/25 14:28 SP TYPE: VOCAL CORD OTHR DR: Dr. Colt Hanna MD Tissues: A - Vocal cord, NOS Procedures: Surgery Specimen Level IV HEADER OPERATION: Micro direct laryngoscopy with excision vocal cord polyp PRE-OP DIAGNOSIS: Dysphonia, nodules of vocal cords TISSUE SUBMITTED: A- Left vocal cord neoplasm MICROSCOPIC DIAGNOSIS A. Left vocal cord, biopsy: * Benign vocal cord polyp MICROSCOPIC DESCRIPTION Slides are reviewed. GROSS DESCRIPTION A. Received in formalin labeled with the patient's name and date of . Designated as " left vocal cord neoplasm" is a 0.3 x 0.2 x 0.1 cm reyes-pink, focally erythematous tissue fragment. Entirely submitted in 1 cassette. OR [id number]
[2025-06-10] MEDS: Midazolam 2 MG/2 ML Syringe IV (10:48)
[2025-06-10] MEDS: Lidocaine 1% (5 ml sdv) 5 ML Vial IV (10:55)
[2025-06-10] MEDS: fentaNYL 100 MCG/2 ML Ampul IV (11:04)
[2025-06-10] MEDS: Epinephrine (1 mg/ml) 1 MG/ML VIAL (11:08)
--- NOTE | 2025-06-10 11:11 | PCM.OPRPT ---
Operative Report (Standard) Operative Information Date of Procedure: 06/10/25 Pre-Operative Diagnosis: left vocal cord polyp Post-Operative Diagnosis: same Surgery/Procedure Performed: Microdirect laryngoscopy with excision of left vocal cord polyp radiation protection specialist: No Type of Anesthesia: General RN Documented Start/Stop Times: Operation Date: 06/10/25 10:15 Case Time Into Pre-Op 06/10/25 08:39 Out of Pre-Op 06/10/25 10:45 Anesthesia Start 06/10/25 10:48 Into Room 06/10/25 10:48 Procedure Start 06/10/25 11:02 Procedure End 06/10/25 11:10 Procedure Start Time: 11:02 Procedure Stop Time: 11:10 Select all DRAINS/GRAFTS/IMPLANTS that apply: None Estimated Blood Loss: <1 cc Specimen collected: Yes Description of specimen(s) removed: left vocal cord neoplasm Description of surgery: The patient was taken to the operating room on 06/10/2025. She was placed in the supine position on the operating room table. She was given sufficient general endotracheal anesthesia. The table was turned degrees in a clockwise fashion. 2 wet 4 x 4's were placed on the patient's upper gingiva. A Dedo laryngoscope inserted the patient's mouth into the oropharynx. This was passed into the larynx. The larynx was exposed and then the laryngoscope was placed in suspension on the [place] stand using a Lewy suspension leslie. The microscope was then brought into use. The left mid cord neoplasm was grasped with cup forceps. I then excised the cyst/polyp from the surrounding mucosa. This was sent for permanent section. Hemostasis was achieved with adrenaline pledgets. The pledgets were then removed. Once hemostasis was achieved, all instrumentation was removed. The patient was turned back to regular anesthesia position and awoken. Blood loss minimal, replacement none. Sponge, needle and instrument count were correct at the end of the procedure. Surgical Findings: left mid cord cyst/polyp Complications Complications: No
--- NOTE | 2025-06-10 11:14 | DS.PCM_ITS ---
Providers Primary Care Physician: Dr. Colt Hanna MD Reason For Visit: Microlaryngoscopy Medications at Discharge Home Medications duloxetine 60 mg capsule,delayed release 60 mg PO QHS 06/03/25 ropinirole 4 mg tablet 4 mg PO QHS restless legs 06/03/25 Weight / BMI Weight Weight: 100 kg Body Mass Index (BMI) 37.8 ABG / Lab / Microbiology Data 06/04/25 07:29 06/04/25 07:29 D/C Instructions Discharge Activity: Return to Normal Activity Additional Activity Instructions: Absolute voice rest for 3 days then arms length talking for a week DC O2, CPAP, BIPAP Needs Home O2 Discharge instructions: No Please Follow Up With: Isaiah Vital MD When: 2-3 weeks Meaningful Use Info Meaningful Use Meaningful Use Diagnoses (Choose all that apply): None applicable Discharge Plan Admission Attending Provider: Isaiah Vital Primary Care Provider: Colt Hanna Instructions Print Language: Divehi Discharge Orders/Prescriptions Prescriptions: No Action ropinirole 4 mg tablet 4 mg PO QHS duloxetine 60 mg capsule,delayed release(DR/EC) 60 mg PO QHS Other Ambulatory Orders: 12 Lead EKG (Routine) Timeframe: [id number] Location: None Selected Ordered By: Dr. Isaiah Vital Referrals / Follow Up: Colt Hanna MD [Primary Care Provider, Medical] Disposition Disposition (needs filled in before D/C Order can be placed): Home, Self Care
--- NOTE | 2025-06-10 11:30 | PCM.POST.ANE ---
Anesthesia: Postop Eval I Current Vital Signs Temperature: 97.1 F Pulse Rate: 75 Blood Pressure: 127/78 Respiratory Rate: 16 Pulse Ox: 96 Oxygen Delivery Method: Nasal Cannula Oxygen Flow Rate (L/min): 2 Assessment Airway patent: Yes Spontaneous unlabored respirations: Yes Mental status: Awake and Calm nausea: No Vomiting: No Anesthesia Complication: No Fluid Hydration Crystalloid volume administer (ml): 1,100 Total IV fluid infused: 1,100 Progress Note Anesthesia document: Postop Eval 1 completed: Yes
--- NOTE | 2025-06-10 12:07 | POSTOPAN2_ITS ---
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 Spontaneous unlabored Yes 06/10/25 11:31 DINING ROOM HOST/HOSTESS.SHOF respirations Mental status Awake,Calm 06/10/25 11:31 DINING ROOM HOST/HOSTESS.SHOF nausea No 06/10/25 11:31 DINING ROOM HOST/HOSTESS.SHOF Vomiting No 06/10/25 11:31 DINING ROOM HOST/HOSTESS.SHOF Anesthesia Postop Eval I: Fluid Summary Crystalloid volume administer 1,100 06/10/25 11:31 DINING ROOM HOST/HOSTESS.SHOF (ml) Colloids volume administered ( ml) Blood Product volume administered (ml) Total IV fluid infused 1,100 06/10/25 11:31 DINING ROOM HOST/HOSTESS.SHOF Anesthesia Postop Eval I: Summary Notes Anesthesia Complication No 06/10/25 11:31 DINING ROOM HOST/HOSTESS.SHOF Anesthesia Complication Comment: Post-operative progress note Anesthesia: Postop Eval II Evaluation Mental status: Awake Pain Level: 0 nausea: No Vomiting: No
--- NOTE | 2025-06-10 12:07 | PCM.POSTANE2 ---
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 Spontaneous unlabored Yes 06/10/25 11:31 [employer] SUPERVISOR.SHOF respirations Mental status Awake,Calm 06/10/25 11:31 [employer] SUPERVISOR.SHOF nausea No 06/10/25 11:31 [employer]ERN[employer] SUPERVISOR.SHOF Vomiting No 06/10/25 11:31 [employer]ERN[employer] SUPERVISOR.SHOF Anesthesia Postop Eval I: Fluid Summary Crystalloid volume administer 1,100 06/10/25 11:31 [employer]ERN[employer] SUPERVISOR.SHOF (ml) Colloids volume administered ( ml) Blood Product volume administered (ml) Total IV fluid infused 1,100 06/10/25 11:31 [employer]ERN[employer] SUPERVISOR.SHOF Anesthesia Postop Eval I: Summary Notes Anesthesia Complication No 06/10/25 11:31 [employer]ERN[employer] SUPERVISOR.SHOF Anesthesia Complication Comment: Post-operative progress note Anesthesia: Postop Eval II Evaluation Mental status: Awake Pain Level: 0 nausea: No Vomiting: No
== END 2025-06-10 12:53 | disposition home or self-care (01) ==
LOC: SDC 08:33 → AC 08:37
PROVIDERS: PCP Family Medicine; Referring Provider Otolaryngology; Visit Provider Otolaryngology
PROC: 0CJS8ZZ Inspection of Larynx, Via Natural or Artificial Opening Endoscopic (ICD-10-PCS; CPT 31575; principal; 2025-06-10 10:10)
DX: J38.1 Polyp of vocal cord and larynx (principal); K21.9 Gastro-esophageal reflux disease without esophagitis; E78.00 Pure hypercholesterolemia, unspecified; J45.909 Unspecified asthma, uncomplicated; I10 Essential (primary) hypertension
CPT/HCPCS: 31541; 00320; 36415; 80048; 85027; 88305; 93005; J2405